=== PATIENT | male | born 1930 | race Caucasian/White ===

== ENCOUNTER 2016-12-08 12:32 | Observation (INO) | payer MEDICARE ==
[~2016-12-08] VITALS: Ht 177.8 cm; Wt 83.5 kg
[~2016-12-08 12:32] MED LIST: ASPI1TAB PO; CO Q200C10 PO; DEXI30CA2 PO; LISI-542 PO; OSTETAB3 PO; SIMV20TA2 PO; VITA10002 PO; VITACAP8 PO
[2016-12-08] MEDS ORDERED: VITA200038 PO (12:43)
[2016-12-08] MEDS ORDERED: ATEN25TA PO (12:43)
[2016-12-08] MEDS ORDERED: MOVE1TAB PO (12:43)
[2016-12-08] MEDS ORDERED: MECLIZINE 25 MG TABLET PO ONE (13:15)
--- NOTE | 2016-12-08 13:28 | REP ---
Clinical: Altered mental status. Cerebrovascular accident. Findings: Age-related atrophy and microvascular ischemic changes are appreciated. The ventricles and sulci are symmetric. Awad-white differentiation is maintained. There is no evidence for acute intracranial hemorrhage, mass/mass effect, pathology or infarction. No extra-axial fluid collection. Calvarium is intact. Paranasal sinuses and mastoid air cells are clear. Impression: Age related atrophy and microvascular ischemic changes. No acute intracranial hemorrhage, infarction, or mass/mass effect. Signed by Sherwin Ro MD 12/08/2016 01:20 P
[2016-12-08 14:11] LABS: BASO # 0.1 K/mm3 (0.0-0.2); BASO % 1.1 % (0.0-1.0); EOS # 0.4 K/mm3 (0.0-0.50); EOS % 6.7 % (0.0-3.0); LARGE UNSTAINED CELL # 0.1 K/mm3 (0.0-0.4); LARGE UNSTAINED CELL % 1.4 % (0.0-4.0); LYMPH # 2.1 K/mm3 (1.5-4.5); LYMPH % 37.4 % (24.0-44.0); MEAN CORPUSCULAR HGB CONC 33.1 g/dl (32.0-36.5); MEAN CORPUSCULAR VOLUME 93.7 fl (80.0-96.0); MONO # 0.4 K/mm3 (0.0-0.8); MONO % 6.6 % (0.0-5.0); NEUTROPHILS # 2.6 K/mm3 (1.8-7.7); NEUTROPHILS % 46.8 % (36.0-66.0); PLATELET COUNT, AUTOMATED 194 k/mm3 (150-450); WHITE BLOOD COUNT 5.5 K/mm3 (4.0-10.0)
[2016-12-08 14:19] LABS: INR 0.94
[2016-12-08 14:26] LABS: ANION GAP 8 MEQ/L (8-16); BLOOD UREA NITROGEN 14 MG/DL (7-18); CARBON DIOXIDE LEVEL 29 MEQ/L (21-32); CHLORIDE LEVEL 104 MEQ/L (98-107); CREATININE FOR GFR 0.84 MG/DL (0.70-1.30); GLOMERULAR FILTRATION RATE > 60.0 (>35); GLUCOSE, FASTING 97 MG/DL (83-110); POTASSIUM SERUM 4.2 MEQ/L (3.5-5.1); SODIUM LEVEL 141 MEQ/L (136-145)
--- NOTE | 2016-12-08 14:31 | REP ---
PORTABLE CHEST X-RAY: Single view. HISTORY: Weakness. FINDINGS: The lungs are symmetrically aerated and free of infiltrate. Pleural angles are sharp. A bipolar pacemaker is seen in the right heart via the left side. Pulmonary vasculature is not increased. No infiltrate is seen. IMPRESSION: Pacemaker in place. Otherwise no acute disease. Signed by Miguel Giron MD 12/08/2016 06:34 P
[2016-12-08] MEDS ORDERED: DULC5TAB PO (16:27)
[2016-12-08] MEDS ORDERED: POTA20TA PO (16:27)
[2016-12-08] MEDS ORDERED: FURO20TA2 PO (16:27)
[2016-12-08] MEDS ORDERED: ONDANSETRON 4 MG TAB (S0181) PO PRN (17:45)
[2016-12-08] MEDS ORDERED: BISACODYL 5 MG TAB PO PRN (17:45)
[2016-12-08] MEDS ORDERED: ACETAMINOPHEN TAB 650MG DOSE (2X325MG) PO PRN (17:45)
[2016-12-08] MEDS ORDERED: NS 600 ML IV SCH (18:00)
--- NOTE | 2016-12-08 18:33 | HPEPDOC ---
General Date of Admission 12/08/2016 Primary Care Physician: PASQUALE KIMBALL DO Other Providers Providers in [place]: -PCP: Dr. Adame -Typesetting Supervisor: Dr. Henrandez -Accuracy Expert: Dr. Murcia Attending Physician: SHARMILA WRIGHT MD Chief Complaint The patient is a 86-year-old male admitted with a reason for visit of Off Balance. History of Present Illness 78-year-old male with past medical history of hypertension, dyslipidemia, coronary artery disease with 7 stents, presents to the ED for feeling off balance for the past 5 days that spontaneously began when he woke up. Patient denies all other symptoms including shortness of breath, chest pain, numbness/ tingling, blurred vision, slurred speech, lightheadedness, and body weakness. Patient states he is unable to walk in a straight line, and feels he moves as if he is drunk and is unable to walk straight. He experiences no symptoms at rest. Patient denies feeling that the room is spinning. Patient states he felt better for 2 days, the symptoms returned last night and this morning. Patient states he fell on Tuesday walking up the stairs due to loss of balance, and denies blacking out, or loss of consciousness. Patient denies ever experiencing this before. Denies sick contacts, recent travel, medication or lifestyle changes. Patient also states he felt his eyes were "hazy" this morning, but cleared up on its own. Patient was brought to the ED by his partner. Both live in [place] and visit [place] for the summer. In the ED, vitals were WNL and there were no acute concerns on EKG, labs, or head CT and CXR. Patient was given a dose of Meclizine. Home Medications Scheduled (Co Q-10) 200 Mg Cap, 200 MG PO DAILY, (Reported) (B Complex) 1 Cap Cap, 1 CAP PO DAILY, (Reported) (Move Free Joint Health Ad) 1 Tab Tab, 1 TAB PO DAILY, (Reported) Aspirin (Aspirin 81) 81 Mg Tab, 81 MG PO QHS, (Reported) Atenolol (Atenolol) 25 Mg Tab, 25 MG PO QHS, (Reported) Cholecalciferol (Vitamin D-3) 2,000 Unit Tab, 2,000 UNIT PO DAILY, (Reported) Cyanocobalamin (Vitamin B-12) 1,000 Mcg Tab, 2,000 MCG PO Q2D, (Reported) Furosemide (Furosemide) 20 Mg Tab, 10 MG PO DAILY, (Reported) Potassium Chloride (Klor-Con M20) 20 Meq Tabcr, 20 MEQ PO DAILY, (Reported) Simvastatin (Simvastatin) 20 Mg Tab, 20 MG PO QHS, (Reported) Scheduled PRN (Dexilant) 30 Mg Cap, 30 MG PO DAILY PRN for HEARTBURN, (Reported) Bisacodyl (Dulcolax) 5 Mg Tab, 5 MG PO for CONSTIPATION, (Reported) Allergies Coded Allergies: Promethazine (Unverified Adverse Reaction, Unknown, SEVERE CONFUSION, 12/18) Past Medical History Medical History HTN Dyslipidemia CAD, 7 stents hx xolon cancer hx melanoma Carpal Tunnel Surgical History Pacemaker, 2009 7 cardiac stents (5 placed, 2 collapsed), 2008 Appendectomy, 1945 Left elbow repair, 1952 Melanoma removed on back, 1973 Partial colectomy for colon cancer, 1998 Cholecystectomy, 2008 Melanoma removed on right shoulder, August 2016 Small bowel obstruction 2/2 adhesions, August 2016 Melanomas removed from face 4 Left knee repair, 2013 Right knee repair, 2015 Tonsillectomy Transurethral resection of prostate Family History Father: asthma 2 sisters: diabetes 2 sisters: [place] Social History CODE STATUS: DNR/DNI smoked cigarettes for 5 yrs, half ppd, quit at age 19 alcohol: occasional beer/wine illicit substances: denies lives at home with partnerCoreen Review of Symptoms Constitutional: Denies: Chills, Fever, Night Sweats, Weight Loss, Lethargy Eyes: Reports: Vision change (haziness this am that spontaneously resolved), Denies: Pain ENT: Denies: Head Aches, Ear Pain, Dysphagia Pulmonary: Denies: Dyspnea, Cough Cardiovascular: Denies: Chest Pain, Palpitations, Orthopnea, Lt Headedness Gastrointestinal: Denies: Nausea, Vomiting, Abdominal Pain, Diarrhea, Constipation Musculoskeletal: Denies: Joint Pain, Muscle Pain Neurological: Reports: Incoordination (loss of balance and unable to walk straight), Denies: Weakness, Numbness, Change in speech, Confusion Psych: Reports: Mood Normal, Denies: Memory Issues Physical Examination General Exam: Positive: Alert, Cooperative, No Acute Distress Eye Exam: Positive: PERRLA, Conjunctiva & lids normal, EOMI, Negative: Ptosis ENT Exam: Positive: Atraumatic, Mucous membr. moist/pink, Pharynx Normal, Tongue Midline Neck Exam: Positive: Supple, Negative: JVD, thyromegaly, Lymphadenopathy Chest Exam: Positive: Clear to auscultation, Normal air movement, Negative: Rales, Rhonchi, Wheezing Heart Exam: Positive: Rate Normal, Regular Rhythm, Normal S1, Normal S2 Abdomen Exam: Positive: Normal bowel sounds, Soft, Negative: Tenderness Extremity Exam: Positive: Normal pulses, Swelling (bilateral ankles, r>l), Negative: Clubbing, Cyanosis, Tenderness Skin Exam: Positive: Nl turgor and temperature, Negative: Rash Neuro Exam: Positive: Normal Speech, Strength at 5/5 X4 ext, Sensation Intact, Cranial Nerves 3-12 NL Psych Exam: Positive: Mental status NL, Mood NL, Memory Intact, Oriented x 3 Vital Signs Vital Signs Date Time Temp Pulse Resp B/P (MAP) Pulse Ox O2 Delivery O2 Flow Rate FiO2 12/08/16 17:31 74 96 12/08/16 17:20 139/66 (90) 12/08/16 15:31 98.0 18 12/08/16 12:33 Room Air Height (in): 71 Weight (kg): 79.5 BMI (kg): 24.4 Laboratory Data Labs 24H Laboratory Tests 2 12/08/16 13:55: White Blood Count 5.5, Red Blood Count 4.63, Hemoglobin 14.4, Hematocrit 43.4, Mean Corpuscular Volume 93.7, Mean Corpuscular Hemoglobin 31.0, Mean Corpuscular Hemoglobin Concent 33.1, Red Cell Distribution Width 14.0, Platelet Count 194, Neutrophils (%) (Auto) 46.8, Lymphocytes (%) (Auto) 37.4, Monocytes ( %) (Auto) 6.6H, Eosinophils (%) (Auto) 6.7H, Basophils (%) (Auto) 1.1H, Neutrophils # (Auto) 2.6, Lymphocytes # (Auto) 2.1, Monocytes # (Auto) 0.4, Eosinophils # (Auto) 0.4, Basophils # (Auto) 0.1, Large Unclassified Cells % 1.4 , Large Unclassified Cells # 0.1, Prothrombin Time 12.7, Prothromb Time International Ratio 0.94, Activated Partial Thromboplast Time 22.9L, Anion Gap 8 , Glomerular Filtration Rate > 60.0, Blood Urea Nitrogen 14, Creatinine 0.84, Sodium Level 141, Potassium Level 4.2, Chloride Level 104, Carbon Dioxide Level 29, Calcium Level 9.0, Total Creatine Kinase 90, Creatine Kinase MB 3.2, Creatine Kinase MB Relative Index 3.55, Troponin I < 0.02 CBC/BMP Laboratory Tests 12/08/16 13:55 Red Blood Count 4.63, Mean Corpuscular Volume 93.7, Mean Corpuscular Hemoglobin 31.0, Mean Corpuscular Hemoglobin Concent 33.1, Red Cell Distribution Width 14.0 , Neutrophils (%) (Auto) 46.8, Lymphocytes (%) (Auto) 37.4, Monocytes (%) (Auto ) 6.6 H, Eosinophils (%) (Auto) 6.7 H, Basophils (%) (Auto) 1.1 H, Neutrophils # (Auto) 2.6, Lymphocytes # (Auto) 2.1, Monocytes # (Auto) 0.4, Eosinophils # ( Auto) 0.4, Basophils # (Auto) 0.1, Calcium Level 9.0, Total Creatine Kinase 90 Assessment/Plan Vertigo -orthostatic hypotension vs. CVA vs. carotid artery stenosis vs. functional decline -pt fully neurologically intact. No facial droop, slurred speech, or motor or sensory deficits on PE to suggest stroke. No acute findings on head CT or CXR. Monitor -pt currently asymptomatic with vitals WNL and no concerning labs -positive orthostatics on first read (diastolic dropped from 74 to 61 sitting to standing). Continue checking orthostatics tid -hold Atenolol & Lasix -IV fluids at 50cc/hr, total of 600ccs -PENDING: echocardiogram and carotid ultrasound to rule out cardiac etiology including valvular issues and cardiomyotaphy or carotid artery stenosis. Cardiac markers and EKG negative in ED -PT consulted. Appreciate their input Dyslipidemia -continue Simvastatin CAD -continue ASA & statin HTN -hold Atenolol & Lasix to prevent hypotension. Monitor DVT Prophylaxis -Lovenox Plan / VTE VTE Prophylaxis Ordered?: Yes (Lovenox) GME ATTESTATION GME ATTESTATION My preceptor for this patient encounter was physically present in the building during the encounter and was fully available. As needed, all aspects of the patient interview, examination, medical decision making process, and medical care plan development were reviewed and approved by the preceptor. Preceptor is aware and concurs with the plan as stated in the body of this note and will attest to such by his/her cosignature. MADINA WOOD DO Dec 08, 2016 18:11
[2016-12-08 19:00] VITALS: BP_SYST 142; BP_SYST 143; BP_SYST 158; BP_DIAS 62; BP_DIAS 63; BP_DIAS 72
[2016-12-08] MEDS: SENOKOT S TAB PO SCH (20:11)
[2016-12-08] MEDS ORDERED: ATENOLOL 25 MG TAB PO SCH (21:00)
[2016-12-08] MEDS ORDERED: ASPIRIN 81 MG ENTERIC TAB PO SCH (21:00)
[2016-12-08] MEDS ORDERED: SIMVASTATIN 20 MG TAB PO SCH (21:00)
--- NOTE | 2016-12-08 21:40 | ECGEPIP ---
Stationary ECG Study [facility] - ED Test Date: 2016-12-08 Pat Name: CHRISTINE COFFMAN Department: Room: - Gender: M [employer] Analyst: JT : 1930 Requested By: ANNA Leos Order Number: [id number] Reading MD: Desiree Stoddard Measurements Intervals Rush Rate: 82 P: 173 NM: 178 QRS: -52 QRSD: 169 T: 100 QT: 418 QTc: 489 Interpretive Statements ELECTRONIC ATRIAL PACEMAKER ELECTRONIC VENTRICULAR PACEMAKER ABNORMAL RHYTHM ECG NO PRIOR FOR COMPARISON Electronically Signed On 12-08-2016 21:40:11 EDT by Desiree Stoddard
--- NOTE | 2016-12-08 21:50 | REPUSA ---
HISTORY: Not available. TECHNIQUE: The examination was performed with high resolution mariano scale sonography, color flow Doppl er imaging, and spectral waveform analysis. The ICA/CCA ratio is based upon peak systolic velocity in the distal common carotid artery (nearest t o the most narrowed segment in the ICA) compared to the highest peak systolic velocity in the ICA. FINDINGS: High resolution sonography demonstrates small and moderate hard and soft atheromatous plaqu e lesions bilaterally in the carotid artery bifurcations without ulcerating plaque identified. Peak systolic velocities/end-diastolic velocities on the right side are: Distal CCA 53.5/11.0 centimeters per second. Distal ICA 132.5/29.8 centimeters per second. ECA 142.6//11.9 centimeters per second. ICA/CCA systolic velocity ratio: 2.48 Peak systolic velocities and end-diastolic velocities on the left side are: CCA 80.2/16.8 centimeters per second. Distal ICA 68.5/17.1 centimeters per second. ECA 58.6/3.7 centimeters per second. ICA/CCA systolic velocity ratio: 0.85. Antegrade flow was identified in the right and left vertebral arteries. 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
[2016-12-09] VITALS: BP 135/71
[2016-12-09 04:00] VITALS: BP 141/85
[2016-12-09 07:25] VITALS: BP 150/77
[2016-12-09 07:26] LABS: MEAN CORPUSCULAR HEMOGLOBIN 31.1 pg (27.0-33.0); MEAN CORPUSCULAR HGB CONC 33.2 g/dl (32.0-36.5); MEAN CORPUSCULAR VOLUME 93.6 fl (80.0-96.0); WHITE BLOOD COUNT 5.9 K/mm3 (4.0-10.0)
[2016-12-09 07:34] LABS: ANION GAP 10 MEQ/L (8-16); BLOOD UREA NITROGEN 15 MG/DL (7-18); CALCIUM LEVEL 8.9 MG/DL (8.8-10.2); CARBON DIOXIDE LEVEL 26 MEQ/L (21-32); CHLORIDE LEVEL 109 MEQ/L (98-107); GLOMERULAR FILTRATION RATE > 60.0 (>35); GLUCOSE, FASTING 105 MG/DL (83-110); MAGNESIUM LEVEL 2.2 MG/DL (1.8-2.4); POTASSIUM SERUM 4.2 MEQ/L (3.5-5.1); SODIUM LEVEL 145 MEQ/L (136-145)
[2016-12-09] MEDS ORDERED: FUROSEMIDE 20 MG TAB PO SCH (09:00)
[2016-12-09] MEDS ORDERED: VITAMIN D 1,000 INTERNATIONAL UNITS TABLET PO SCH (09:00)
[2016-12-09] MEDS ORDERED: ENOXAPARIN 40 MG/0.4 ML SYRINGE (J1650) SC SCH (09:00)
[2016-12-09] MEDS ORDERED: CYANOCOBALAMIN 500 MCG TAB PO SCH (09:00)
[2016-12-09] MEDS: SENOKOT S TAB PO SCH (09:00)
--- NOTE | 2016-12-09 12:32 | IPNPDOC ---
Subjective Date Seen The patient was seen on 12/09/16. Subjective Chief Complaint/HPI The patient is a 86-year-old male admitted with a reason for visit of Vertigo. Events since last encounter feels better this morning , no weakness or disbalance today , walking normally today with out any dizziness or light headedness. no fever or chills, no chest pain or sob , no cough or phlegm , no nausea or vomiting or diarrhea , no abdominal pain Objective Physical Examination General Exam: Positive: Alert, Cooperative, No Acute Distress Eye Exam: Positive: PERRLA, Conjunctiva & lids normal, EOMI, Negative: Ptosis ENT Exam: Positive: Atraumatic, Mucous membr. moist/pink, Pharynx Normal, Tongue Midline Neck Exam: Positive: Supple, Negative: JVD, thyromegaly, Lymphadenopathy Chest Exam: Positive: Clear to auscultation, Normal air movement, Negative: Rales, Rhonchi, Wheezing Heart Exam: Positive: Rate Normal, Regular Rhythm, Normal S1, Normal S2 Abdomen Exam: Positive: Normal bowel sounds, Soft, Negative: Tenderness Extremity Exam: Positive: Normal pulses, Swelling (bilateral ankles, r>l), Negative: Clubbing, Cyanosis, Tenderness Skin Exam: Positive: Nl turgor and temperature, Negative: Rash Neuro Exam: Positive: Normal Speech, Strength at 5/5 X4 ext, Sensation Intact, Cranial Nerves 3-12 NL Psych Exam: Positive: Mental status NL, Mood NL, Memory Intact, Oriented x 3 Assessment /Plan Problems (1) Vertigo Status: Acute Problem Text: possibly due to vestibular neuronitis from upper respiratory tract infection a week ago May have mild dehydration also due to lasix and poor intake as symptoms improved with gentel hydration. (2) Dehydration Status: Acute Problem Text: due to poor oral intake with lasix on board. felt better with IVF with resolution of symptoms advised to hold lasix (3) Pacemaker Status: Chronic (4) CAD (coronary artery disease) Status: Chronic (5) Hypertension Status: Chronic (6) Dyslipidemia Status: Chronic (7) History of colon cancer Status: Chronic (8) History of melanoma Status: Chronic Plan/VTE VTE Prophylaxis Ordered?: Yes (Lovenox) Disposition discharge home. VS, I&O, 24H, Fishbone Vital Signs/I&O Vital Signs Date Time Temp Pulse Resp B/P (MAP) Pulse Ox O2 Delivery O2 Flow Rate FiO2 12/09/16 07:25 98.9 76 18 150/77 (101) 95 12/09/16 04:00 Room Air I&O- Last 24 Hours up to 6 AM 12/09/16 06:00 Intake Total 1440 ml Output Total 1400 ml Balance 40 ml Laboratory Data 24H LABS Laboratory Tests 2 12/08/16 13:55: White Blood Count 5.5, Red Blood Count 4.63, Hemoglobin 14.4, Hematocrit 43.4, Mean Corpuscular Volume 93.7, Mean Corpuscular Hemoglobin 31.0, Mean Corpuscular Hemoglobin Concent 33.1, Red Cell Distribution Width 14.0, Platelet Count 194, Neutrophils (%) (Auto) 46.8, Lymphocytes (%) (Auto) 37.4, Monocytes ( %) (Auto) 6.6H, Eosinophils (%) (Auto) 6.7H, Basophils (%) (Auto) 1.1H, Neutrophils # (Auto) 2.6, Lymphocytes # (Auto) 2.1, Monocytes # (Auto) 0.4, Eosinophils # (Auto) 0.4, Basophils # (Auto) 0.1, Large Unclassified Cells % 1.4 , Large Unclassified Cells # 0.1, Prothrombin Time 12.7, Prothromb Time International Ratio 0.94, Activated Partial Thromboplast Time 22.9L, Anion Gap 8 , Glomerular Filtration Rate > 60.0, Blood Urea Nitrogen 14, Creatinine 0.84, Sodium Level 141, Potassium Level 4.2, Chloride Level 104, Carbon Dioxide Level 29, Calcium Level 9.0, Total Creatine Kinase 90, Creatine Kinase MB 3.2, Creatine Kinase MB Relative Index 3.55, Troponin I < 0.02 12/09/16 01:02: Urine Appearance CLEAR, Urine Color YELLOW, Urine pH 7.0, Urine Specific Hunter 1.005, Urine Protein NEGATIVE, Urine Glucose (UA) NEGATIVE, Urine Ketones NEGATIVE, Urine Urobilinogen 0.2, Urine Bilirubin NEGATIVE, Urine Leukocyte Esterase NEGATIVE, Urine Blood NEGATIVE, Urine Nitrite NEGATIVE, Urine WBC (Auto) 0, Urine RBC (Auto) 1, Urine Hyaline Casts (Auto) 0, Urine Bacteria (Auto) NEGATIVE, Urine Squamous Epithelial Cells 0, Urine Sperm (Auto) 12/09/16 06:40: Anion Gap 10, Glomerular Filtration Rate > 60.0, Blood Urea Nitrogen 15, Creatinine 0.80, Sodium Level 145, Potassium Level 4.2, Chloride Level 109H, Carbon Dioxide Level 26, Calcium Level 8.9, Magnesium Level 2.2 CBC/BMP Laboratory Tests 12/08/16 13:55 Red Blood Count 4.63, Mean Corpuscular Volume 93.7, Mean Corpuscular Hemoglobin 31.0, Mean Corpuscular Hemoglobin Concent 33.1, Red Cell Distribution Width 14.0 , Neutrophils (%) (Auto) 46.8, Lymphocytes (%) (Auto) 37.4, Monocytes (%) (Auto ) 6.6 H, Eosinophils (%) (Auto) 6.7 H, Basophils (%) (Auto) 1.1 H, Neutrophils # (Auto) 2.6, Lymphocytes # (Auto) 2.1, Monocytes # (Auto) 0.4, Eosinophils # ( Auto) 0.4, Basophils # (Auto) 0.1, Calcium Level 9.0, Total Creatine Kinase 90 12/09/16 06:40 Red Blood Count 4.26 L, Mean Corpuscular Volume 93.6, Mean Corpuscular Hemoglobin 31.1, Mean Corpuscular Hemoglobin Concent 33.2, Red Cell Distribution Width 14.0, Calcium Level 8.9 SHARMILA WRIGHT MD Dec 09, 2016 12:32
== END 2016-12-09 13:00 | disposition home or self-care (01) ==
LOC: M ED 12:32 → M ED INP 17:49
PROVIDERS: ADMIT Internal Medicine; ATTEND Internal Medicine Nephrology
DX: R42 Dizziness and giddiness (principal); E86.0 Dehydration; Z95.0 Presence of cardiac pacemaker; I25.10 Atherosclerotic heart disease of native coronary artery without angina pectoris; I10 Essential (primary) hypertension; Z85.038 Personal history of other malignant neoplasm of large intestine; Z85.820 Personal history of malignant melanoma of skin; E78.5 Hyperlipidemia, unspecified; I65.23 Occlusion and stenosis of bilateral carotid arteries; R79.1 Abnormal coagulation profile; Z98.61 Coronary angioplasty status; Z79.82 Long term (current) use of aspirin; Z79.899 Other long term (current) drug therapy; Z88.8 Allergy status to other drugs, medicaments and biological substances; Z87.891 Personal history of nicotine dependence
CPT/HCPCS: 36415; 70450; 71010; 80048; 81001; 82550; 82553; 83735; 84484; 85025; 85027; 85610; 85730; 93005; 93041; 93880; 94760; 96360; 96361; 99285; G0378; J1650